=== PATIENT | female | born 1975 | race Caucasian/White ===

== ENCOUNTER 2016-11-02 07:59 | Emergency (ER) | payer BC ==
[~2016-11-02] VITALS: Ht 160 cm; Wt 88.3 kg
[~2016-11-02 07:59] MED LIST: FLUO40CA8 PO; KLN1 PO; LEVO100T7 PO; LEVO88TA3 PO; MTR800 PO; OXYC-88 PO; TPM100 PO; ZFR8 PO
[2016-11-02 08:03] VITALS: TEMP 36.8; Ht 160 cm; Wt 88.3 kg
[2016-11-02] MEDS ORDERED: ONDANSETRON INJ 2 MG/ML 2 ML VIAL IV STA (08:21)
[2016-11-02] MEDS ORDERED: SODIUM CHLORIDE 0.9% 1000ML 1,000 ML IV STA (08:21)
[2016-11-02] MEDS ORDERED: MoRPHine SULFATE 4 MG/ML 1 ML CARP\\VIAL IV STA (08:21)
[2016-11-02 08:35] LABS: BASO % 0.4 %; BASO ABS # 0.03 K/uL (0-0.2); COMPLETE YES; EOS % 1.5 %; HEMATOCRIT 40.6 % (37-47); IG% 0.4 %; LYMPH % 38.6 %; LYMPH ABS # 2.91 K/uL (1.2-3.4); MEAN CELL VOLUME 81.4 fL (80-100); MEAN CORPUSCULAR HEMOGLOBIN 27.5 pg (25-34); MEAN CORPUSCULAR HGB CONC 33.7 g/dl (32-36); MONO % 7.3 %; NEUT % 51.8 %; PLATELET COUNT 371 K/uL (130-400); RED BLOOD COUNT 4.99 M/uL (4.2-5.4); WHITE BLOOD COUNT 7.53 K/uL (4.8-10.8)
[2016-11-02 08:43] LABS: ALT/SGPT 24 U/L (12-78); BLOOD UREA NITROGEN 12 mg/dl (7-18); BUN/CREATININE RATIO 12.2 (10-20); C-REACTIVE PROTEIN < 0.29 mg/dl (0-0.29); CARBON DIOXIDE 20 mmol/L (21-32); CHLORIDE 109 mmol/L (98-107); GLUCOSE 87 mg/dl (70-99); MAGNESIUM 2.2 mg/dl (1.8-2.4); POTASSIUM 3.9 mmol/L (3.5-5.1); SODIUM 139 mmol/L (136-145)
[2016-11-02 08:45] LABS: PROTHROMBIN TIME (PATIENT) 10.7 SECONDS (9.0-12.0)
[2016-11-02] MEDS ORDERED: OPTIRAY 320 IV PRN (08:45)
[2016-11-02 08:46] LABS: ALB/GLOB RATIO 1.1 (0.9-2); ALKALINE PHOSPHATASE 75 U/L (45-117); AST/SGOT 15 U/L (15-37)
[2016-11-02] MEDS ORDERED: PANTOprazole INJ 80 MG in DEXTROSE 5% 100ML IV SCH (09:00)
[2016-11-02] MEDS ORDERED: PANTOprazole INJ 40 MG in DEXTROSE 5% 100ML IV SCH (09:15)
--- NOTE | 2016-11-02 09:55 | DIAGNOSTIC IMAGING REPORT ---
ABDOMEN AND PELVIS CT WITHOUT CONTRAST CT DOSE: 1516.64 mGy.cm HISTORY: Generalized abdominal pain, subjective hematemesis TECHNIQUE: Multiaxial CT images of the abdomen and pelvis were performed without the use of intravenous and oral contrast according to the standard department stone protocol. COMPARISON STUDY: None. FINDINGS: Small patchy groundglass density within the base of the left lower lobe. The right lung base is clear. No pneumoperitoneum. No pneumatosis. No suspicious lytic or blastic osseous lesions. Cholecystectomy. There are 2 hypodense lesions within the right hepatic lobe with the largest measuring 5 mm. These are too small to characterize. The unenhanced spleen, pancreas, and adrenal glands are unremarkable. No renal stones or hydronephrosis. The bladder is unremarkable. No retroperitoneal lymphadenopathy. The uterus and bilateral ovaries are within normal limits. No pelvic fluid. Suboptimal evaluation for bowel pathology due to the lack of intravenous and oral contrast. However, there is no definite bowel wall thickening or obstruction. Normal appendix. IMPRESSION: 1. No renal stones or hydronephrosis. 2. No definite bowel wall thickening or obstruction. 3. Normal appendix. 4. Small patchy groundglass airspace opacity within the base of the left lower lobe. This is nonspecific but could represent a mild pneumonitis or dependent change. 5. Cholecystectomy. Electronically signed by: Keanu Naqvi M.D. 11/02/2016 9:53 AM Dictated Date/Time: 11/02/2016 9:28 AM
[2016-11-02 10:15] VITALS: O2SAT 100
[2016-11-02] MEDS ORDERED: GABA1CAP PO (10:17)
[2016-11-02] MEDS ORDERED: TOPI100T34 PO (10:17)
[2016-11-02] MEDS ORDERED: OMEP40CA41 PO (10:17)
[2016-11-02 10:24] LABS: URINE APPEARANCE CLEAR (CLEAR); URINE BILIRUBIN NEG (NEG); URINE COLOR YELLOW; URINE EPITHELIAL CELL AUTO >30 /lpf (0-5); URINE NITRITE NEG (NEG); URINE SPECIFIC GRAVITY 1.005 (1.000-1.030); UROBILINOGEN NEG (NEG); ZZUR CULT IF INDIC CLEAN CATCH YES
[2016-11-02 10:34] LABS: MANUAL MICROSCOPIC REQUIRED? NO; REVIEW REQ? NO
[2016-11-02] MEDS ORDERED: PANT40TA PO (10:50)
[2016-11-02] MEDS ORDERED: ONDA4TAB10 SL (10:50)
--- NOTE | 2016-11-02 10:51 | EMERGENCY ROOM VISIT NOTE ---
History First contact with patient: 08:07 Chief Complaint: ABDOMINAL PAIN Stated Complaint: V, ABD. PAIN/BRUISING Nursing Triage Summary: pt reports right abd pain started yesterday pt reports bruising on abd where pain is. vomited what looked like crushed oreos History of Present Illness The patient is a 40 year old female who presents to the Emergency Department by private vehicle for evaluation of her nausea, vomiting, and lower abdominal pain. The patient reports a history of cholecystectomy. She also complains of chronic CSF leak for which she is treated with pain medication at her primary care provider's discretion. The patient reports that yesterday in the evening time she developed diffuse upper abdominal pain with associated nausea and vomiting. She has had watery bowel movements which has been consistent with priors. She's had no fevers or chills. There has been subjective blood in her vomit. She describes it as "Oreo cookies". There is been no black tarry stools. She rates her current discomfort as an 8/10. She used her typical over -the-counter and prescribed pain medications without relief of symptoms. She denies any chest pain, palpitations, shortness of breath, hematochezia, melena, hematuria, or dysuria. She denies any chance for . Review of Systems A complete 10-point Review of Systems was discussed with the patient, with pertinent positives and negatives listed in the History of Present Illness. All remaining Review of Systems questions can be considered negative unless otherwise specified. 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 (11) Tobacco Use Disorder (12) Traumatic brain injury Surgical Problems: (1) Tubal Ligation Status Family History Cancer Social History Smoking Status: Current Every Day Smoker Smokeless Tobacco Use: No Alcohol Use: none Drug Use: none Marital Status: Housing Status: lives with family Occupation Status: employed Current/Historical Medications Scheduled Fluoxetine (Prozac), 40 MG PO DAILY Gabapentin (Neurontin), 100 MG PO TID Levothyroxine Sodium (Levothyroxine Sodium), 100 MCG PO DAILY Levothyroxine Sodium (Levothyroxine Sodium), 88 MCG PO DAILY Omeprazole (Prilosec), 40 MG PO DAILY Pantoprazole (Protonix), 40 MG PO DAILY Topiramate (Topamax), 100 MG PO BID Scheduled PRN Ondasetron Odt (Zofran Odt), 1 TAB SL Q6 PRN for Nausea or Vomiting Allergies Coded Allergies: Ketorolac (Verified Allergy, Mild, 11/23/10) Shellfish (Verified Allergy, Mild, 06/18/08) Canned Fish (Verified Allergy, Unknown, SEAFOOD ALLERGY, 11/23/10) Iodine (Verified Allergy, Unknown, 11/23/10) Tetracycline (Verified Allergy, Unknown, DOXYCYCLINE, 11/23/10) Physical Exam Vital Signs Date Time Temp Pulse Resp B/P Pulse Ox O2 Delivery O2 Flow Rate FiO2 11/02/16 10:52 57 16 102/51 11/02/16 10:15 67 22 127/80 100 Room Air 11/02/16 09:53 89 18 106/47 96 Room Air 11/02/16 08:03 36.8 89 18 131/86 96 Room Air Pain Rating (0-10): 8 Physical Exam VITAL SIGNS - Vital signs and nursing notes were reviewed. GENERAL - 40-year-old female appearing her stated age who is in no acute distress. Communicates well with provider and answers questions appropriately. NECK - Neck with FROM. Supple to palpation. No nuchal rigidity. LUNGS - Chest wall symmetric without accessory muscle use, intercostals retractions, or central cyanosis. Normal vesicular breath sounds CTA B/L. No wheezes, rales, or rhonchi appreciated. CARDIAC - RRR with S1/S2. No murmur, rubs, or gallops appreciated. ABDOMEN - Abdominal contour obese and without pulsations or visible masses. Small area of dark purple ecchymosis noted to the RIGHT lower quadrant. BS normoactive all four quadrants. Subjective tenderness to palpation appreciated throughout the abdomen. No guarding. No Rebound Tenderness. Negative Rovsing's. Negative Toure's. No palpable masses, hepatosplenomegaly, or ascites noted. EXTREMITIES - No clubbing or peripheral cyanosis. No pretibial edema present. +3 /5 radial and dorsalis pedis pulses palpated throughout. RECTAL (Female RN nurse Truck Spotter - Bryanna, was present throughout entire procedure) - No rectal fissures. No skin tags appreciated throughout. No active bleeding. A sterile, water-soluble lubricant was applied to the examiner's finger prior to internal exam. No rectal vault tenderness. No rectal masses. No fecal impaction. Stool Guaiac Test: Hemoccult NEGATIVE. PSYCH - A&Ox3 and cooperates fully with examiner. Pt is very pleasant and interacts well with examiner. Medical Decision & Procedures ER Provider Diagnostic Interpretation: Radiological imaging and reports were reviewed by myself. Radiologist's Interpretation as follows: ABDOMEN AND PELVIS CT WITHOUT CONTRAST CT DOSE: 1516.64 mGy.cm HISTORY: Generalized abdominal pain, subjective hematemesis TECHNIQUE: Multiaxial CT images of the abdomen and pelvis were performed without the use of intravenous and oral contrast according to the standard department stone protocol. COMPARISON STUDY: None. FINDINGS: Small patchy groundglass density within the base of the left lower lobe. The right lung base is clear. No pneumoperitoneum. No pneumatosis. No suspicious lytic or blastic osseous lesions. Cholecystectomy. There are 2 hypodense lesions within the right hepatic lobe with the largest measuring 5 mm. These are too small to characterize. The unenhanced spleen, pancreas, and adrenal glands are unremarkable. No renal stones or hydronephrosis. The bladder is unremarkable. No retroperitoneal lymphadenopathy. The uterus and bilateral ovaries are within normal limits. No pelvic fluid. Suboptimal evaluation for bowel pathology due to the lack of intravenous and oral contrast. However, there is no definite bowel wall thickening or obstruction. Normal appendix. IMPRESSION: 1. No renal stones or hydronephrosis. 2. No definite bowel wall thickening or obstruction. 3. Normal appendix. 4. Small patchy groundglass airspace opacity within the base of the left lower lobe. This is nonspecific but could represent a mild pneumonitis or dependent change. 5. Cholecystectomy. Laboratory Results 11/02/16 08:12 Red Blood Count 4.99, Mean Corpuscular Volume 81.4, Mean Corpuscular Hemoglobin 27.5, Mean Corpuscular Hemoglobin Concent 33.7, Mean Platelet Volume 10.0, Neutrophils (%) (Auto) 51.8, Lymphocytes (%) (Auto) 38.6, Monocytes (%) (Auto) 7.3, Eosinophils (%) (Auto) 1.5, Basophils (%) (Auto) 0.4, Neutrophils # (Auto) 3.90, Lymphocytes # (Auto) 2.91, Monocytes # (Auto) 0.55, Eosinophils # (Auto) 0.11, Basophils # (Auto) 0.03 11/02/16 08:12 Test 11/02/16 08:12 11/02/16 09:37 White Blood Count 7.53 K/uL (4.8-10.8) Red Blood Count 4.99 M/uL (4.2-5.4) Hemoglobin 13.7 g/dL (12.0-16.0) Hematocrit 40.6 % (37-47) Mean Corpuscular Volume 81.4 fL (80-100) Mean Corpuscular Hemoglobin 27.5 pg (25-34) Mean Corpuscular Hemoglobin Concent 33.7 g/dl (32-36) Platelet Count 371 K/uL (130-400) Mean Platelet Volume 10.0 fL (7.4-10.4) Neutrophils (%) (Auto) 51.8 % Lymphocytes (%) (Auto) 38.6 % Monocytes (%) (Auto) 7.3 % Eosinophils (%) (Auto) 1.5 % Basophils (%) (Auto) 0.4 % Neutrophils # (Auto) 3.90 K/uL (1.4-6.5) Lymphocytes # (Auto) 2.91 K/uL (1.2-3.4) Monocytes # (Auto) 0.55 K/uL (0.11-0.59) Eosinophils # (Auto) 0.11 K/uL (0-0.5) Basophils # (Auto) 0.03 K/uL (0-0.2) RDW Standard Deviation 41.0 fL (36.4-46.3) RDW Coefficient of Variation 13.7 % (11.5-14.5) Immature Granulocyte % (Auto) 0.4 % Immature Granulocyte # (Auto) 0.03 K/uL (0.00-0.02) Erythrocyte Sedimentation Rate 16 mm/hr (0-21) Prothrombin Time 10.7 SECONDS (9.0-12.0) Prothromb Time International Ratio 1.0 (0.9-1.1) Activated Partial Thromboplast Time 26.2 SECONDS (21.0-31.0) Partial Thromboplastin Ratio 1.0 Anion Gap 10.0 mmol/L (3-11) Est Creatinine Clear Calc Drug Dose 79.6 ml/min Estimated GFR () 82.2 Estimated GFR (Non- 70.9 BUN/Creatinine Ratio 12.2 (10-20) Calcium Level 9.0 mg/dl (8.5-10.1) Magnesium Level 2.2 mg/dl (1.8-2.4) Total Bilirubin 0.3 mg/dl (0.2-1) Aspartate Amino Transf (AST/SGOT) 15 U/L (15-37) Alanine Aminotransferase (ALT/SGPT) 24 U/L (12-78) Alkaline Phosphatase 75 U/L (45-117) C-Reactive Protein < 0.29 mg/dl (0-0.29) Total Protein 7.5 gm/dl (6.4-8.2) Albumin 3.9 gm/dl (3.4-5.0) Globulin 3.6 gm/dl (2.5-4.0) Albumin/Globulin Ratio 1.1 (0.9-2) Lipase 173 U/L (73-393) Urine Color YELLOW Urine Appearance CLEAR (CLEAR) Urine pH 5.0 (4.5-7.5) Urine Specific [place] 1.005 (1.000-1.030) Urine Protein NEG (NEG) Urine Glucose (UA) NEG (NEG) Urine Ketones NEG (NEG) Urine Occult Blood NEG (NEG) Urine Nitrite NEG (NEG) Urine Bilirubin NEG (NEG) Urine Urobilinogen NEG (NEG) Urine Leukocyte Esterase TRACE (NEG) Urine WBC (Auto) 1-5 /hpf (0-5) Urine RBC (Auto) 0-4 /hpf (0-4) Urine Hyaline Casts (Auto) 1-5 /lpf (0-5) Urine Epithelial Cells (Auto) >30 /lpf (0-5) Urine Bacteria (Auto) 1+ (NEG) Urine Test NEG (NEG) Date/Time Source Procedure Growth Status 11/02/16 09:37 Urine , Clean Catch Urine Culture - Final THREE TYPES OF ORGANSIMS PRESENT, ALL... Complete Medications Administered Medications (Trade) Dose Ordered Sig/Manjinder Route Start Time Stop Time Status Last Admin Dose Admin Sodium Chloride (Nss 1000ml) 1,000 ml @ 999 mls/hr Q1H1M STAT IV 11/02/16 08:21 11/02/16 09:21 DC 11/02/16 08:21 999 MLS/HR Ondansetron HCl (Zofran Inj) 4 mg NOW STAT IV 11/02/16 08:21 11/02/16 08:27 DC 11/02/16 08:50 4 MG Morphine Sulfate 4 mg 4 mg NOW STAT IV 11/02/16 08:21 11/02/16 08:27 DC 11/02/16 08:51 4 MG Pantoprazole Sodium 80 mg/ Dextrose 120 ml @ 480 mls/hr 0900 IV 11/02/16 09:00 11/02/16 09:14 DC 11/02/16 09:32 480 MLS/HR Pantoprazole Sodium/Dextrose (Protonix Inj/D5 100ml) 100 ml @ 20 mls/hr Q5H IV 11/02/16 09:15 11/02/16 11:10 DC 11/02/16 09:31 20 MLS/HR ED Course Patient was seen and evaluated by myself. Previous emergency permit visit notes were reviewed. Labs were drawn, saline lock complains. The patient was hydrated with a 1000 mL normal saline bolus. She received formal grams morphine and formerly grams Zofran. Protonix drip and bolus was instituted. Rectal exam was Hemoccult negative. CT of the abdomen and pelvis without IV contrast was ordered. Laboratory results demonstrate no acute leukocytosis, worrisome anemia, or bandemia. ESR and CRP are not elevated. She has no significant electrolyte abnormalities. Urinalysis does not suggest infection. Imaging studies as above. Laboratory results and imaging studies were reviewed with the patient who acknowledges understanding. I did review the [place] drug monitoring program and the patient does receive regular narcotic medications from her primary care provider. She was educated on continuing with these medications and that I was not comfortable providing any further narcotic pain medications for home. She was provided a prescription for Protonix to be used for the next several days. She'll follow-up with her primary care provider from today's visit or return for any changing/worsening symptoms. Patient discharged home afebrile and in good condition. Medical Decision Given the patient's presentation and stated complaints, I did elect to perform the above-mentioned workup. The patient resents today with subjective coffee- ground emesis. She has no fever leukocytosis. She is complaining of abdominal pain. She does have an area of ecchymosis to the RIGHT lower abdomen which she reportedly could not explain. She denies any falls or trauma. Rectal exam was negative despite her complaints of hematemesis. H&H is stable. She was treated with Protonix regardless. She was provided initial doses of pain medication in the emergency department. CT demonstrates no acute findings that would explain her situation otherwise. The patient was encouraged to continue to follow with her primary care provider for ongoing symptoms. She was provided Protonix as well as Zofran for home. She has prescription is for narcotic pain medications at home. The patient was educated on worrisome symptoms for return visit to the emergency department. Patient discharged home afebrile and in good condition. In the evaluation and treatment of this patient, the following differential diagnoses were considered: Appendicitis, Diverticulitis, Diverticulosis, Colitis , Ischemic Colitis, Inflammatory Bowel Disease, Irritable Bowel Disease, Ovarian Torsion, Kidney Stone, Pyelonephritis, Hydronephrosis, Cholecystitis, Ascending Cholangitis, Choledocholithiasis, GERD. [place] Drug Monitoring Program Search Results: patient reviewed within database, see additional documentation Impression Primary Impression: Vomiting Additional Impressions: subjective coffee ground emesis Gastritis Abdominal pain Departure Information Dispostion Home / Self-Care Condition GOOD Prescriptions Ondasetron Odt (ZOFRAN ODT) 4 Mg Tab 1 TAB SL Q6 Y for Nausea or Vomiting for 7 Days, #28 TAB Prov: Stanislav Chavez PA-C 11/02/16 Pantoprazole (Protonix) 40 Mg Tab 40 MG PO DAILY for 14 Days, #14 TAB Prov: Stanislav Chavez PA-C 11/02/16 Referrals Diamante Story M.D. (PCP) Que Segura M.D. Patient Instructions [facility] Additional Instructions You've been seen in the emergency department today for your vomiting, abdominal pain, and likely gastritis. Please follow-up with x-ray of the chest within the next week. You have been prescribed Zofran to be used for any nausea or vomiting. Take as prescribed. Please take the Protonix as prescribed. Follow-up with your primary care provider or return for any changing or worsening symptoms. Problem Qualifiers Primary Impression: Vomiting Vomiting type: unspecified Vomiting Intractability: unspecified Nausea presence: unspecified Qualified Codes: R11.10 - Vomiting, unspecified Additional Impressions: Gastritis Gastritis type: unspecified gastritis Chronicity: unspecified Gastritis bleeding: presence of bleeding unspecified Qualified Codes: K29.70 - Gastritis, unspecified, without bleeding
[2016-11-02 10:52] VITALS: BP 102/51; PULSE 57
== END 2016-11-02 11:02 | disposition home or self-care (01) ==
LOC: C.EDB 08:01 → C.EDA 11:02
DX: R11.10 Vomiting, unspecified (principal); K29.70 Gastritis, unspecified, without bleeding; F17.200 Nicotine dependence, unspecified, uncomplicated; F32.9 Major depressive disorder, single episode, unspecified